=== PATIENT | female | born 1955 | race African-American/Black ===

== ENCOUNTER 2023-07-24 22:28 | Emergency (ER) | payer SELFPAY ==
[~2023-07-24] VITALS: Ht 170.2 cm; Wt 109.0 kg
[2023-07-24 22:41] VITALS: BP 171/93; PULSE 97; RESP 20; TEMP 98.4; O2SAT 98
== END 2023-07-24 23:11 | disposition left against medical advice (07) ==
LOC: ER 22:28
DX: M25.561 Pain in right knee (principal); Z53.21 Procedure and treatment not carried out due to patient leaving prior to being seen by health care provider
CPT/HCPCS: 99281